=== PATIENT | female | born 2000 | race Caucasian/White ===

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

== ENCOUNTER 2024-09-26 00:23 | Emergency (ER) | payer BC, MEDICAID | END 2024-09-26 01:06 | disposition home or self-care (01) | LOC: JD.ED 00:23 | DX: T23.292A Burn of second degree of multiple sites of left wrist and hand, initial encounter (principal); T23.291A Burn of second degree of multiple sites of right wrist and hand, initial encounter; X08.8XXA Exposure to other specified smoke, fire and flames, initial encounter; Y93.89 Activity, other specified | CPT/HCPCS: 16020; 99283; 99283-25 ==